=== PATIENT | male | born 2000 | race American Indian/Alaskan Native ===

== ENCOUNTER 2022-02-21 00:57 | Emergency (ER) | payer MEDICAID ==
[2022-02-21 02:12] VITALS: BP 110/52
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
--- NOTE | 2022-02-21 08:50 | XRay Report ---
Left forearm 2 views INDICATION: Left forearm pain IMPRESSION: The left forearm is intact. Signer Name: Jarrett Christiansen MD Signed: 02/21/2022 8:46 AM Workstation Name: [id number]
--- NOTE | 2022-02-21 08:51 | XRay Report ---
Left hip 3 views INDICATION: Left hip pain IMPRESSION: No fracture or subluxation. Signer Name: Jarrett Christiansen MD Signed: 02/21/2022 8:47 AM Workstation Name: [id number]
== END 2022-02-22 08:27 | disposition home or self-care (01) ==
LOC: ED 00:57
DX: S70.02XA Contusion of left hip, initial encounter (principal); S50.02XA Contusion of left elbow, initial encounter; S09.90XA Unspecified injury of head, initial encounter; Y04.8XXA Assault by other bodily force, initial encounter; Y93.89 Activity, other specified; Y92.89 Other specified places as the place of occurrence of the external cause; Y99.8 Other external cause status
CPT/HCPCS: 70450; 99284